=== PATIENT | male | born 1995 | race Caucasian/White ===

== ENCOUNTER 2017-01-08 22:16 | Emergency (ER) | payer BC ==
[2017-01-08] MEDS ORDERED: Albuterol/Ipratropium 3.0-0.5 MG/3 ML Neb Soln NEB ONE (22:43)
[2017-01-08] MEDS ORDERED: methylPREDNISolone Sodium Succinate 125 MG/2 ML SDV IM ONE (22:43)
--- NOTE | 2017-01-08 22:49 | EDM.PDOC ---
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 DID NOT HAVE INHALER. EMS WAS CONTACTED AND PT FOUND TO HAVE 85% O2 SAT. GAVE 2 ALB NEB UPDRAFTS AND TRANSPORTED TO ER. PT NOW RESTING COMFORTABLE WITH SAT OF 93% ON RA. DENIES CP, FEVER, OR TRAUMA Onset: Today Duration: Minutes:, Improving Location: Reports: Chest Severity: Mild Improves with: Reports: Medication Worsens with: Reports: None Associated Symptoms: Reports: No Other Symptoms, Shortness of Breath. Denies: Chest Pain, Fever/Chills, Nausea/Vomiting - Related Data Allergies Allergy/AdvReac Type Severity Reaction Status Date / Time grain dust Allergy Shortness Uncoded 01/08/17 22:21 of Breath Home Meds: Home Meds Albuterol Sulfate [Ventolin Hfa] 18 gm IH Q4HR PRN #1 [id number] 01/08/17 [Rx] Albuterol [IJD: Albuterol] 2.5 mg NEB DAILY 01/08/17 [History] Albuterol [IJD: Ventolin HFA] 2 puff INH Q4HR 01/08/17 [History] Albuterol [Ventolin HFA] 8 gm INH Q4H PRN #1 inhaler 01/08/17 [Rx] Prednisone [IJD: predniSONE] 20 mg PO WITHBREAKFAST #10 tab 01/08/17 [Rx] Prednisone [IJD: predniSONE] 20 mg PO WITHBREAKFAST #5 tab 01/08/17 [Rx] Prednisone [IMW: predniSONE] 20 mg PO WITHBREAKFAST #5 tab 01/08/17 [Rx] ED ROS GENERAL - Review of Systems Review Of Systems: ROS reveals no pertinent complaints other than HPI. Constitutional: Reports: No Symptoms HEENT: Reports: No Symptoms Respiratory: Reports: Shortness of Breath, Wheezing Cardiovascular: Reports: No Symptoms Endocrine: Reports: No Symptoms GI/Abdominal: Reports: No Symptoms : Reports: No Symptoms Musculoskeletal: Reports: No Symptoms Skin: Reports: No Symptoms Neurological: Reports: No Symptoms Psychiatric: Reports: No Symptoms Hematologic/Lymphatic: Reports: No Symptoms Immunologic: Reports: No Symptoms ED EXAM, GENERAL - Physical Exam Exam: See Below Exam Limited By: No Limitations General Appearance: Alert, WD/WN, No Apparent Distress Eye Exam: Bilateral Eye: Normal Inspection Nose: Normal Inspection, Normal Mucosa, No Blood Throat/Mouth: Normal Inspection, Normal Lips, Normal Oropharynx, Normal Voice, No Airway Compromise Head: Atraumatic, Normocephalic Neck: Normal Inspection, Supple, Non-Tender Respiratory/Chest: No Respiratory Distress, No Accessory Muscle Use, Chest Non- Tender, Wheezing Cardiovascular: Tachycardia GI/Abdominal: Normal Bowel Sounds Extremities: Normal Inspection, No Pedal Edema Neurological: Alert, Oriented, Normal Cognition Psychiatric: Normal Affect, Normal Mood Skin Exam: Warm, Dry, Intact, Normal Color, No Rash Lymphatic: No Adenopathy Course - Vital Signs Last Recorded V/S: Last Vital Signs Temp 98.7 F 01/08/17 22:20 Pulse 116 H 01/08/17 22:20 Resp 20 01/08/17 22:20 BP 193/71 H 01/08/17 22:20 Pulse Ox 93 L 01/08/17 22:20 - Orders/Labs/Meds Orders: Active Orders 24 hr Category Date Time Status RT Aerosol Therapy [RC] ASDIRECTED Care 01/08/17 22:43 Ordered Albuterol/Ipratropium [DuoNeb 3.0-0.5 MG/3 ML] Med 01/08/17 22:43 Once 3 ml NEB ONETIME ONE methylPREDNISolone Sod Succ [Solu-MEDROL] Med 01/08/17 22:43 Once 125 mg IM ONETIME ONE - Re-Assessments/Exams Free Text/Narrative Re-Assessment/Exam: 01/08/17 22:59 PT AFEBRILE, NONTOXIC APPEARING, BBS MUCH IMPROVED, NOW WITH FAINT EXP WHEEZE. SAT 96% ON R/A. WILL F/U WITH PCP IN 1-2 DAYS. Departure - Departure Time of Disposition: 23:02 Disposition: Home, Self-Care 01 Condition: Good Clinical Impression: Asthma attack, Asthma with acute exacerbation in adult - Discharge Information Instructions: Shortness of Breath, [id number], Asthma, Adult, [id number], How to Use an Inhaler, [id number] Forms: ED Department Discharge Additional Instructions: FOLLOW UP WITH YOUR PCP IN NEXT 1-2 DAYS. RETURN TO ER SOONER IF SYMPTOMS CONTINUE - My Orders Last 24 Hours: My Active Orders 01/08/17 22:43 RT Aerosol Therapy [RC] ASDIRECTED Albuterol/Ipratropium [DuoNeb 3.0-0.5 MG/3 ML] 3 ml NEB ONETIME ONE methylPREDNISolone Sod Succ [Solu-MEDROL] 125 mg IM ONETIME ONE - Assessment/Plan Last 24 Hours: My Active Orders 01/08/17 22:43 RT Aerosol Therapy [RC] ASDIRECTED Albuterol/Ipratropium [DuoNeb 3.0-0.5 MG/3 ML] 3 ml NEB ONETIME ONE methylPREDNISolone Sod Succ [Solu-MEDROL] 125 mg IM ONETIME ONE Assessment:: ASTHMA ATTACK Plan: F/U WITH PCP
[2017-01-09 00:04] VITALS: BP 122/74
== END 2017-01-08 23:22 | disposition home or self-care (01) ==
LOC: SUPCPDRO 22:16 → KA.ED 22:16
DX: J45.901 Unspecified asthma with (acute) exacerbation (principal)
CPT/HCPCS: 94640; 99284; J2930; 96372

== ENCOUNTER 2019-06-22 13:30 | Emergency (ER) | payer BC ==
[2019-06-22] MEDS ORDERED: methylPREDNISolone Sodium Succinate 125 MG/2 ML SDV IVPUSH ONE (13:39)
[2019-06-22] MEDS ORDERED: GI Cocktail 45 ML BOTTLE PO ONE (13:53)
[2019-06-22] MEDS ORDERED: Albuterol/Ipratropium 3.0-0.5 MG/3 ML Neb Soln NEB ONE (13:53)
--- NOTE | 2019-06-22 14:00 | EDM.PDOC ---
ED HPI GENERAL MEDICAL PROBLEM - General Time Seen by Provider: 06/22/19 13:31 Source of Information: Reports: Patient History Limitations: Reports: No Limitations - History of Present Illness INITIAL COMMENTS - FREE TEXT/NARRATIVE: Patient presents with dyspnea and a feeling of a knot in middle lower chest that started a few minutes after eating some candy that likely hand some kind of nut in it. He is allergic to nuts but is quite strict in avoiding them so hasn't had reactions since childhood and possibly one 5 years ago he says. His breathing is a little restricted he says but he also has asthma and uses Singulair and Advair daily as well as albuterol prn. He denies any hives or rash. He ate the candy/nut about 1.5 hours ago. He does have an epinephrine autoinjector but doesn't always carry it with him. Sternum Pain Score (Numeric/FACES): 3 - Related Data Allergies Allergy/AdvReac Type Severity Reaction Status Date / Time walnut Allergy Anaphylactic Verified 06/22/19 13:43 Shock grain dust Allergy Shortness Uncoded 06/22/19 13:43 of Breath Home Meds: Home Meds Albuterol [IJD: Albuterol] 2.5 mg NEB DAILY PRN 01/08/17 [History] Albuterol [IJD: Ventolin HFA] 2 puff INH Q4HR 01/08/17 [History] Cetirizine [ZyrTEC] 10 mg PO DAILY 06/22/19 [History] Escitalopram Oxalate [Lexapro] 10 mg PO DAILY 06/22/19 [History] Fluticasone/Vilanterol [Breo Ellipta 200-25 MCG Inhalation Kit] 1 puff IH BEDTIME 06/22/19 [History] Montelukast [Singulair] 10 mg PO DAILY 06/22/19 [History] Past Medical History HEENT History: Reports: Hard of Hearing, Other (See Below) Other HEENT History: bilat hearing aids Cardiovascular History: Reports: None Respiratory History: Reports: Asthma Gastrointestinal History: Reports: GERD, Other (See Below) (chronic loose stools ) Genitourinary History: Reports: None Musculoskeletal History: Reports: None Neurological History: Reports: None Psychiatric History: Reports: Anxiety Endocrine/Metabolic History: Reports: Obesity/BMI 30+ Oncologic (Cancer) History: Reports: None - Infectious Disease History Infectious Disease History: Reports: None - Past Surgical History Respiratory Surgical History: Reports: None GI Surgical History: Reports: None Neurological Surgical History: Reports: None Musculoskeletal Surgical History: Reports: None ED ROS GENERAL - Review of Systems Review Of Systems: See Below Constitutional: Denies: Fever, Chills, Weakness HEENT: Denies: Ear Pain, Throat Pain, Throat Swelling, Vision Change Respiratory: Reports: Shortness of Breath (somewhat), Wheezing (mild). Denies: Cough Cardiovascular: Denies: Chest Pain, Lightheadedness, Syncope GI/Abdominal: Reports: Vomiting (4 times about 20 minutes after eating the candy ). Denies: Abdominal Pain, Diarrhea : Reports: No Symptoms Musculoskeletal: Reports: No Symptoms Skin: Denies: Cyanosis, Jaundice, Mottled, Pallor, Diaphoresis Neurological: Denies: Confusion, Dizziness, Seizure, Syncope, Trouble Speaking, Difficulty Walking Psychiatric: Denies: Agitation, Anxiety, Confusion ED EXAM, GENERAL - Physical Exam Exam: See Below Exam Limited By: No Limitations General Appearance: Alert, WD/WN, No Apparent Distress Eye Exam: Bilateral Eye: EOMI, Normal Inspection, PERRL Ears: Normal External Exam, Hearing Grossly Normal Nose: Normal Inspection, No Blood Throat/Mouth: Normal Inspection, Normal Lips, Normal Teeth, Normal Gums, Normal Oropharynx, Normal Voice, No Airway Compromise Head: Atraumatic, Normocephalic Neck: Normal Inspection, Supple, Non-Tender, Full Range of Motion Respiratory/Chest: No Respiratory Distress, Lungs Clear, No Accessory Muscle Use , Chest Non-Tender, Wheezing (slight). No: Stridor Cardiovascular: Normal Peripheral Pulses, Regular Rate, Rhythm GI/Abdominal: Normal Bowel Sounds, Soft, Non-Tender Back Exam: Normal Inspection, Full Range of Motion. No: CVA Tenderness (L), CVA Tenderness (R) Extremities: Normal Inspection, Normal Range of Motion Neurological: Alert, Oriented, Normal Cognition, No Motor/Sensory Deficits Psychiatric: Normal Affect, Normal Mood Skin Exam: Warm, Dry, Intact, Normal Color, No Rash Course - Vital Signs Last Recorded V/S: Last Vital Signs Temp 98.1 F 06/22/19 13:35 Pulse 91 06/22/19 14:42 Resp 22 H 06/22/19 14:42 BP 136/86 06/22/19 14:42 Pulse Ox 95 06/22/19 14:42 - Orders/Labs/Meds Orders: Active Orders 24 hr Category Date Time Status RT Aerosol Therapy [RC] ASDIRECTED Care 06/22/19 13:53 Active Meds: Medications Discontinued Medications Generic Name Dose Route Start Last Admin Trade Name Melissa PRN Reason Stop Dose Admin Al Hydroxide/Mg Hydroxide 45 ml 06/22/19 13:53 06/22/19 14:09 Gi Cocktail PO 06/22/19 13:54 45 ml ONETIME ONE Administration Albuterol/Ipratropium 3 ml 06/22/19 13:53 06/22/19 13:58 Duoneb 3.0-0.5 Mg/3 Ml NEB 06/22/19 13:54 3 ml ONETIME ONE Administration Methylprednisolone Sodium Succinate 125 mg 06/22/19 13:39 06/22/19 13:45 Solu-Medrol IVPUSH 06/22/19 13:40 125 mg ONETIME ONE Administration - Re-Assessments/Exams Free Text/Narrative Re-Assessment/Exam: 06/22/19 14:19 Patient stable. We have given Solu-medrol 125 mg IV, Duoneb, and GI cocktail. The wheezing is gone now and the lump in low-mid chest is gone after the cocktail. When he swallows some water now for us he feels the lump again briefly then it goes away. 06/22/19 15:59 Patient has been monitored for 2.5 hours and is stable without any return of symptoms. He would like to go home. We discussed findings and recommendations in detail. He is discharged to home in stable condition. Departure - Departure Time of Disposition: 15:54 Disposition: Home, Self-Care 01 Condition: Good Clinical Impression: Allergic reaction Qualifiers: Encounter type: initial encounter Qualified Code(s): T78.40XA - Allergy, unspecified, initial encounter - Discharge Information Instructions: Epinephrine Injection, Anaphylactic Reaction, Adult, Allergy Skin Testing Referrals: PCP,Unknown [Ordering Only Provider] - Additional Instructions: 1. Keep your epinephrine autoinjector with you or readily available at all times. It would be good to have two of them available for you. 2. Follow up with your PCP if any worsening or persisting of symptoms. 3. Go to nearest ER if major worsening or reaction. Sepsis Event Note - Evaluation Sepsis Screening Result: No Definite Risk - Focused Exam Vital Signs: Vital Signs Temp Pulse Resp BP Pulse Ox Pulse Ox 06/22/19 14:42 91 22 H 136/86 95 06/22/19 14:04 92 16 149/71 H 100 06/22/19 13:59 99 06/22/19 13:35 98.1 F 93 16 144/92 H 94 L Date Exam was Performed: 06/22/19 Time Exam was Performed: 15:54 - My Orders Last 24 Hours: My Active Orders 06/22/19 13:53 RT Aerosol Therapy [RC] ASDIRECTED - Assessment/Plan Last 24 Hours: My Active Orders 06/22/19 13:53 RT Aerosol Therapy [RC] ASDIRECTED
[2019-06-22 14:43] VITALS: PULSE 91
[2019-06-22 15:58] VITALS: BP 125/78
== END 2019-06-22 16:07 | disposition home or self-care (01) ==
LOC: KA.ED 13:30
DX: T78.40XA Allergy, unspecified, initial encounter (principal); J45.909 Unspecified asthma, uncomplicated; F41.9 Anxiety disorder, unspecified; E66.9 Obesity, unspecified; Z68.36 Body mass index [BMI] 36.0-36.9, adult; Z91.018 Allergy to other foods; Z91.048 Other nonmedicinal substance allergy status; Z79.899 Other long term (current) drug therapy
CPT/HCPCS: 94640; 96374; 99284-25; A9270-GY; J2930; J7620-GY